=== PATIENT | female | born 1965 | race Caucasian/White ===

== ENCOUNTER 2017-06-29 17:16 | Emergency (ER) | payer OTHER ==
[2017-06-29 18:10] VITALS: BP 113/54
--- NOTE | 2017-06-29 19:07 | UC ---
Back Pain HPI - HPI Summary HPI Summary: pt is c/o low back pain. states hx low back pain for about 5 years. has been to chiropractor, [facility] and has had MRI plus CT of back within the past year. states pain has gotten worse over the pastt 2 weeks. she describes it as burning in her low back. denies acute injury, abdominal pain, fever, saddle anesthesia, bowel/bladder dysfunction and numb/weakness to extremities. took 8 otc motrin this am. - History of Current Complaint Hx Obtained From: Patient Hx Last Menstrual Period: 06/28/17 Timing: Constant Pain Intensity: 9 Character: Burning Aggravating Factor(s): Movement Alleviating Factor(s): Other Associated Signs And Symptoms: Negative: Fever, Weakness, Numbness, Tingling, Abdominal Pain, Flank Pain - Risk Factors AAA Risk Factors: Negative TAD Risk Factors: Negative Cauda Equina Risk Factors: Negative Epidural Abscess Risk Factors: Negative <Mai Irvin - Last Filed: 06/29/17 19:27> <Carmen Martin - Last Filed: 06/29/17 19:49> - History of Current Complaint Chief Complaint: UCBackPain Stated Complaint: BACK PAIN Time Seen by Provider: 06/29/17 18:59 - Allergies/Home Medications Allergies/Adverse Reactions: Allergies Allergy/AdvReac Type Severity Reaction Status Date / Time Sulfa (Sulfonamide Allergy Intermediate Hives Verified 06/29/17 18:10 Antibiotics) PMH/Surg Hx/FS Hx/Imm Hx - Additional Past Medical History Additional PMH: chronic back pain, remote hx sz's still tx - Surgical History Surgical History: Yes Surgery Procedure, Year, and Place: TONSILECTOMY. Lt FOOT - 2ND TOE - AND SCREW PLACED - Family History Known Family History: Positive: None - Social History Occupation: Employed Full-time Lives: With Family Alcohol Use: None Substance Use Type: None Smoking Status (MU): Never Smoked Tobacco Have You Smoked in the Last Year: No - Immunization History Most Recent Influenza Vaccination: none Vaccination Up to Date: Yes <Mai Irvin - Last Filed: 06/29/17 19:27> Review of Systems Constitutional: Negative Skin: Negative Eyes: Negative ENT: Negative Respiratory: Negative Cardiovascular: Negative Gastrointestinal: Negative Genitourinary: Negative Motor: Negative Neurovascular: Negative Musculoskeletal: Other: - low back pain Neurological: Negative Psychological: Negative Is Patient Immunocompromised?: No All Other Systems Reviewed And Are Negative: Yes <Mai Irvin - Last Filed: 06/29/17 19:27> Physical Exam Triage Information Reviewed: Yes Appearance: Well-Appearing Vital Signs: Initial Vital Signs Temp 98.8 F 06/29/17 18:03 Pulse 68 06/29/17 18:03 Resp 18 06/29/17 18:03 BP 113/54 06/29/17 18:03 Pulse Ox 100 06/29/17 18:03 Eyes: Positive: Conjunctiva Clear ENT: Positive: Normal ENT inspection Neck: Positive: Supple, Nontender, No Lymphadenopathy Respiratory: Positive: Lungs clear, Normal breath sounds Cardiovascular: Positive: RRR, No Murmur Abdomen Description: Positive: Nontender, No Organomegaly, Soft. Negative: Distended, Guarding Bowel Sounds: Positive: Present Musculoskeletal: Positive: Other: - Back is without gross deformity, swelling, discoloration. She is tender over the lumbar region. rom at waist limited by pain. 5/5 strength and 2+ reflexes x4. normal steady gait. no saddle anesthesia. Neurological: Positive: Alert Psychological: Positive: Age Appropriate Behavior Skin Exam: Normal Skin: Negative: rashes <Mai Irvin - Last Filed: 06/29/17 19:27> Vital Signs: Initial Vital Signs Temp 98.8 F 06/29/17 18:03 Pulse 68 06/29/17 18:03 Resp 18 06/29/17 18:03 BP 113/54 06/29/17 18:03 Pulse Ox 100 06/29/17 18:03 <Carmen Martin - Last Filed: 06/29/17 19:49> Back Pain Course/Dx - Course Course Of Treatment: no concern for infection, acute abdomen or cauda equina. ct and mri of back within pst year and no acute injury thus no xrays. pt advised to stop motrin and appropriate dosing was also discussed. will tx with steroid, flexeril and PT. has appt pcp this thursday. - Differential Dx/Diagnosis Provider Diagnoses: acute flare of chronic low back pain <Mai Irvin - Last Filed: 06/29/17 19:27> Discharge - Sign-Out/Discharge Documenting (check all that apply): Discharge/Admit/Transfer - Billing Disposition and Condition Condition: STABLE Disposition: HOME <Mai Irvin - Last Filed: 06/29/17 19:27> - Billing Disposition and Condition Condition: STABLE Disposition: HOME <Carmen Martin - Last Filed: 06/29/17 19:49> - Discharge Plan Condition: Stable Disposition: HOME Prescriptions: Cyclobenzaprine TAB* [Flexeril 10 MG TAB*] 10 mg PO TID PRN #10 tab PRN Reason: Spasms - Back methylPREDNISolone [Medrol Dosepak 4 MG*] 0 mg PO .SEE KVNG INSTRUCTION #1 tab Patient Education Materials: Back Pain (ED) Referrals: Asmita Velázquez PA [Primary Care Provider] - 4 Days Attestation Statement User Type: Provider - I was available for consult. This patient was seen by the GUALBERTO. The patient was not presented to, seen by, or examined by me. -Clifj <Carmen Martin - Last Filed: 06/29/17 19:49>
== END 2017-06-29 19:37 | disposition home or self-care (01) ==
LOC: UCCORT 17:16
DX: M54.5 Low back pain (principal); G89.29 Other chronic pain
CPT/HCPCS: 99212; G0463

== ENCOUNTER 2018-01-31 14:53 | Emergency (ER) | payer OTHER ==
[2018-01-31 15:07] VITALS: BP 142/70
--- NOTE | 2018-01-31 15:19 | UC ---
Neck Pain HPI - HPI Summary HPI Summary: The patient is a 52-year-old female who has had neck pain for approximately a month. Has progressively worsened. her neck hurts when she turns it to the right. Pain radiates down her right arm to her she is right handed. She has also noticed a tender area of swelling in the region of her right before meals joint. She has no paresthesias. She denies any history of neck injury. - History of Current Complaint Chief Complaint: UCGeneralIllness Stated Complaint: NECK PAIN/RT ARM PAIN Time Seen by Provider: 01/31/18 15:11 Hx Obtained From: Patient Hx Last Menstrual Period: every 2 months Onset/Duration Of Injury/Symptoms: Weeks Timing: Constant Onset/Duration: Gradual Onset Severity: Moderate Pain Intensity: 5 Pain Scale Used: 0-10 Numeric Location: Diffuse, Radiates To: - right shoulder and bicep Character: Aching, Stiff, Spasmotic Aggravating Factors: Movement Alleviating Factors: Nothing Associated Signs & Symptoms: Positive: Headache - slight occipital VAIL - Allergies/Home Medications Allergies/Adverse Reactions: Allergies Allergy/AdvReac Type Severity Reaction Status Date / Time Sulfa (Sulfonamide Allergy Intermediate Hives Verified 01/31/18 15:07 Antibiotics) PMH/Surg Hx/FS Hx/Imm Hx Previously Healthy: Yes - Surgical History Surgical History: Yes Surgery Procedure, Year, and Place: TONSILECTOMY. Lt FOOT - 2ND TOE - AND SCREW PLACED - Family History Known Family History: Positive: Hypertension - Social History Alcohol Use: None Substance Use Type: None Smoking Status (MU): Never Smoked Tobacco Have You Smoked in the Last Year: No - Immunization History Most Recent Influenza Vaccination: none Vaccination Up to Date: Yes Review Of Systems Constitutional: Positive: Negative Skin: Positive: Negative Eyes: Positive: Negative ENT: Positive: Negative Respiratory: Positive: Negative Cardiovascular: Positive: Negative Genitourinary: Positive: Negative Musculoskeletal: Positive: Arthralgia, Myalgia Neurological: Positive: Headache All Other Systems Reviewed And Are Negative: Yes Physical Exam Triage Information Reviewed: Yes Appearance: Well-Appearing, No Pain Distress, Well-Nourished Vital Signs: Initial Vital Signs Temp 97.8 F 01/31/18 15:03 Pulse 79 01/31/18 15:03 Resp 18 01/31/18 15:03 BP 142/70 12/16/18 15:03 Pulse Ox 100 01/31/18 15:03 Vital Signs Reviewed: Yes Eyes: Positive: Conjunctiva Clear ENT: Positive: Hearing grossly normal. Negative: Nasal congestion, Nasal drainage, Tonsillar swelling, Tonsillar exudate, Trismus, Muffled voice, Hoarse voice, Dental tenderness, Sinus tenderness, Uvula midline Neck: Negative: Nontender - tender midline cs and right trap Respiratory: Positive: Lungs clear, Normal breath sounds, No respiratory distress Cardiovascular: Positive: RRR, No Murmur Musculoskeletal: Positive: ROM Intact, No Edema Neurological: Positive: Alert, Muscle Tone Normal Psychological Exam: Normal Skin Exam: Normal Diagnostics - Radiology No standard instances Radiology Interpretation Completed By: Radiologist Summary of Radiographic Findings: DEGENERATIVE DISC DISEASE AND OSTEOARTHRITIS. MINIMAL SOFT TISSUE CALCIFICATION SUGGESTIVE OF A CALCIFIC TENDINOPATHY Neck Pain Course/Dx - Differential Dx/Diagnosis Provider Diagnosis: Cervical spine arthritis, Degenerative disc disease, cervical, Calcific tendonitis Discharge - Sign-Out/Discharge Documenting (check all that apply): Patient Departure All imaging exams completed and their final reports reviewed: Yes - Discharge Plan Condition: Stable Disposition: HOME Patient Education Materials: Osteoarthritis (ED), Calcific Tendinitis (ED), Degenerative Disc Disease (ED) Referrals: Asmita Velázquez PA [Primary Care Provider] - Additional Instructions: aleve two twice daily with food soft collar contact your primary care provider you may need a MRI - Billing Disposition and Condition Condition: STABLE Disposition: Home
== END 2018-01-31 16:15 | disposition home or self-care (01) ==
LOC: UCCORT 14:53
DX: M46.92 Unspecified inflammatory spondylopathy, cervical region (principal); M50.322 Other cervical disc degeneration at C5-C6 level; M47.9 Spondylosis, unspecified; M75.31 Calcific tendinitis of right shoulder; Z88.2 Allergy status to sulfonamides
CPT/HCPCS: 72050; 99212; G0463